=== PATIENT | female | born 1990 | race Caucasian/White ===

== ENCOUNTER 2024-09-01 14:07 | Emergency (ER) | payer BC, SELFPAY ==
[2024-09-01 14:17] VITALS: BP 113/70
[2024-09-01 15:10] LABS: % Basophils 0.7 % (0-2); % Eosinophils 2.8 % (0-6); % Immature Granulocytes 0.1 % (0-0.5); % Lymphocytes 25.8 % (20.5-51.1); % Monocytes 11.2 % (1.7-9.3); % Neutrophils 59.4 % (42.2-75.2); Absolute Basophils 0.1 10^3/uL (0-0.2); Absolute Eosinophils 0.2 10^3/uL (0-0.7); Absolute Lymphocytes 1.8 10^3/uL (1.2-3.4); Absolute Monocytes 0.8 10^3/uL (0.1-0.6); Absolute Neutrophils 4.1 10^3/uL (1.4-6.5); Hematocrit 35.9 % (37.0-47.0); Hemoglobin 12.4 g/dL (12.0-16.0); Mean Corp Hgb Conc. 34.5 g/dL (33.0-37.0); Mean Corpuscular Hgb 29.4 pg (27.0-31.0); Mean Corpuscular Volume 85.1 fL (81.0-99.0); Mean Platelet Volume 9.4 fL (7.4-10.4); Nucleated Red Blood Cells % 0 %; Platelet Count 201 10^3/uL (130-400); Red Blood Cell Count 4.22 10^6/uL (4.20-5.40); Red Cell Dist. Width 12.9 % (11.5-14.5); White Blood Cell Count 6.9 10^3/uL (4.8-10.8)
[2024-09-01 15:22] LABS: ALT (SGPT) 13 U/L (0-35); AST (SGOT) 19 U/L (14-36); Albumin 4.2 g/dl (3.5-5.0); Alkaline Phosphatase 33 U/L (38-126); Blood Urea Nitrogen 12 mg/dl (7-17); Calcium 9.6 mg/dl (8.4-10.2); Carbon Dioxide 23 mmol/L (22-30); Chloride 105 mmol/L (98-107); Glucose 86 mg/dl (70-99); Potassium 3.7 mmol/L (3.5-5.1); Sodium 140 mmol/L (135-145); Total Bilirubin 0.1 mg/dl (0.2-1.3); Total Protein 7.3 g/dl (6.3-8.2); eGFR > 60.00
[2024-09-01 15:25] LABS: COVID-19 Antigen Negative (Negative)
[2024-09-01 16:41] VITALS: BP 110/58; BMI 24.3
--- NOTE | 2024-09-01 16:48 | ED.GENMED ---
History of Present Illness
General
Chief Complaint: Breathing Problem
Source: patient
Exam Limitations: none
Time Seen by Provider: 09/01/24 16:26
Nursing documentation reviewed up to this point in time: agreed with
History of Present Illness
History of Present Illness:
34-year-old female presenting to the emergency department today with concerns of shortness of breath noticed this morning. Had upper respiratory symptoms over the past few days and was seen at urgent care yesterday where she had strep test and
COVID test which were both negative. She was started on amoxicillin. Some ongoing throat pain nasal congestion but shortness of breath worsening today mainly with exertion. Denies any leg swelling recent trauma surgery immobilization.
Review of Systems
Review of Systems
Allergies reviewed?: Yes
All Other Systems: ROS reviewed and negative except as documented in HPI and ROS
Phy Exam
Physical Exam
Physical Exam:
GENERAL: Alert , in no apparent distress
EYE: pupils equal and reactive
NECK: Supple, no significant adenopathy.
ENT: Swollen boggy nasal turbinates, redness and irritation of the posterior pharynx with uvula midline grossly patent airway no significant tonsillar swelling no exudate o/p clr, mmm.
CARDIAC: Regular rate and rhythm .
LUNGS: Clear breath sounds bilaterally, no acute respiratory distress, no wheezes/rales/rhonchi
ABDOMEN: Soft, without focal tenderness, no r/g, no cvat
NEUROLOGICAL: Alert and oriented, no focal neuro deficits
SKIN: Warm and dry, skin intact.
MUSCULOSKELETAL: No edema, well perfused.
PSYCH: Normal and appropriate interaction.
Course
Orders/Labs/Results
Orders:
Orders
09/01/24 14:10
Electrocardiogram (*1) Urgent
Reason for Study: Shortness of Breath
09/01/24 14:11
EKG- Treatment ONCE
09/01/24 14:54
COVID-19 Antigen Urgent
Source: Nasal Swab
Complete Blood Count/With Diff Urgent
Comprehensive Metabolic Panel Urgent
Influenza A+B Rapid Molecular Urgent
REINA Source: Nasal Swab
Specimen Description:
09/01/24 16:47
Dexamethasone [Decadron] 10 mg PO NOW STA
Chest [CR Chest - 2 Views ] Urgent
Comment:
Reason For Exam: sob cough
Abnormal Lab Results
09/01/24
14:54
Hct 35.9 L %
(37.0-47.0)
Absolute Monos (auto) 0.8 H 10^3/uL
(0.1-0.6)
Monocytes % 11.2 H %
(1.7-9.3)
Total Bilirubin 0.1 L mg/dl
(0.2-1.3)
Alkaline Phosphatase 33 L U/L
(38-126)
09/01/24 14:54
09/01/24 14:54
Vital Signs
Initial and Last Documented VS:
Initial Vital Signs
Temp Pulse Resp BP Pulse Ox
98.1 F 78 18 113/70 100
09/01/24 14:17 09/01/24 14:17 09/01/24 14:17 09/01/24 14:17 09/01/24 14:17
Last Documented Vital Signs
Temp Pulse Resp BP Pulse Ox
98.1 F 74 16 115/78 99
09/01/24 14:17 09/01/24 18:01 09/01/24 18:01 09/01/24 18:01 09/01/24 18:01
MDM/Problems Addressed
MDM/Problems Addressed:
34-year-old female presenting to the emergency department today with concerns of shortness of breath. Started this morning diagnosed with likely viral syndrome yesterday at urgent care has had symptoms for a few days. Upon arrival vital signs are
normal patient no distress normal pulse ox lungs are clear no wheezing significant formation to the nose and posterior pharynx. Patient was walked in the room and pulse ox remained in the high 90s. X-ray performed without evidence of acute
consolidation or abnormality. Patient without any emergent processes at this time no evidence of bacterial secondary infection. Plan to discharge at this point considering patient well-appearing in no distress low risk for PE without specific risk
factors other than combined oral contraceptive but normal vital signs. Patient does have alternate diagnosis with likely viral syndrome advised for steroids but otherwise stable for discharge. Return precautions given.
*Critical Care Note
Total Time (30-74mins, 75-104mins- exclusive of procedures): Not Applicable
ED Attending Note
-
Portions of this chart may have been created with voice recognition software.� Occasional wrong word or��sound alike� substitutions may have occurred due to the inherent limitations of voice recognition software.
Discharge Plan
Departure
Patient Disposition: Home (Routine Discharge)
Date of Disposition: 09/01/24
Time of Disposition: 18:03
Patient with high blood pressure during this ER visit?: No
Condition: Good
Covid-19: Not Applicable
Discharge Problem:
Acute bronchitis
Instructions: Acute Bronchitis, Adult (DC)
Prescriptions:
New
prednisone 50 mg tablet
50 mg PO DAILY 4 Days Qty: 4 0RF
Referrals:
[facility] [Other]
Activity Restrictions/Additional Instructions:
You came to the emergency department today with concerns of shortness of breath in the setting of likely viral syndrome. Please take the prednisone as prescribed once daily for the next 4 days, hyou can also take Motrin Tylenol for discomfort.
Symptoms should hopefully improve over the next few days. Please follow close with the primary care doctor to get reassessed. Return to the emergency department for any worsening, new or concerning symptoms.
Interventions
Interventions:
*Risk Screen - Suicide Last Done: 09/01/24 16:44
*General Assessment Last Done: 09/01/24 16:44
*Neglect/Abuse Screening Last Done: 09/01/24 16:44
*ED COVID-19 Vaccine History Last Done: 09/01/24 16:44
ED- Cardiac Assessment Last Done: 09/01/24 16:45
ED- Pulmonary Assessment Last Done: 09/01/24 16:45
Discharge Date and Time
Print Language: MAURITANIAN
[2024-09-01] MEDS: DECADRON 10 MG PO (16:56)
[2024-09-01 18:01] VITALS: BP 115/78
== END 2024-09-01 18:12 | disposition home or self-care (01) ==
LOC: EMR 14:07
PROVIDERS: EMERGENCY PHYSICIAN Emergency Medicine
DX: J20.9 Acute bronchitis, unspecified (principal)
CPT/HCPCS: 99283; 71046; 80053; 85025; 87502; 87811; 93005

== ENCOUNTER 2024-09-04 09:49 | Emergency (ER) | payer BC, SELFPAY ==
[2024-09-04 10:11] VITALS: BP 112/69
[2024-09-04 10:44] LABS: % Basophils 0.6 % (0-2); % Eosinophils 0.2 % (0-6); % Immature Granulocytes 0.2 % (0-0.5); % Lymphocytes 37.7 % (20.5-51.1); % Monocytes 7.2 % (1.7-9.3); % Neutrophils 54.1 % (42.2-75.2); Absolute Basophils 0.1 10^3/uL (0-0.2); Absolute Lymphocytes 3.1 10^3/uL (1.2-3.4); Absolute Monocytes 0.6 10^3/uL (0.1-0.6); Absolute Neutrophils 4.5 10^3/uL (1.4-6.5); Hematocrit 36.9 % (37.0-47.0); Hemoglobin 13.2 g/dL (12.0-16.0); Mean Corp Hgb Conc. 35.8 g/dL (33.0-37.0); Mean Corpuscular Hgb 29.9 pg (27.0-31.0); Mean Corpuscular Volume 83.7 fL (81.0-99.0); Mean Platelet Volume 9.4 fL (7.4-10.4); Nucleated Red Blood Cells % 0 %; Platelet Count 246 10^3/uL (130-400); Red Blood Cell Count 4.41 10^6/uL (4.20-5.40); Red Cell Dist. Width 12.4 % (11.5-14.5); White Blood Cell Count 8.3 10^3/uL (4.8-10.8)
[2024-09-04 11:00] LABS: HCG, Serum Qualitative Screen Negative
[2024-09-04 11:06] LABS: ALT (SGPT) 14 U/L (0-35); AST (SGOT) 19 U/L (14-36); Albumin 4.4 g/dl (3.5-5.0); Alkaline Phosphatase 34 U/L (38-126); Blood Urea Nitrogen 16 mg/dl (7-17); Calcium 10.3 mg/dl (8.4-10.2); Carbon Dioxide 19 mmol/L (22-30); Chloride 108 mmol/L (98-107); Glucose 90 mg/dl (70-99); Potassium 3.6 mmol/L (3.5-5.1); Sodium 142 mmol/L (135-145); Total Bilirubin 0.3 mg/dl (0.2-1.3); Total Protein 7.6 g/dl (6.3-8.2); eGFR > 60.00
[2024-09-04 11:11] LABS: D-Dimer 0.48 ug/mlFEU (0.00-0.50)
--- NOTE | 2024-09-04 11:28 | ED.GENMED ---
History of Present Illness
<Whit Moyer PA-C - Last Filed: 09/04/24 16:33>
General
Chief Complaint: Breathing Problem
Source: patient
Exam Limitations: none
Time Seen by Provider: 09/04/24 11:22
Nursing documentation reviewed up to this point in time: agreed with
History of Present Illness
History of Present Illness:
34-year-old female with a past medical history of uterine polyps presents emergency department today with concerns of shortness of breath. This has been going on for the past 4 days. Patient was originally seen in the emergency department a few
days ago, at that time she also had associated sore throat and nasal congestion. She tested negative for COVID and flu. She had a chest x-ray which did not show any concerning findings. She was diagnosed with bronchitis. She was started on a
steroid. Patient felt like her symptoms did start to improve however yesterday they got worse and return. Patient notes that the shortness of breath is worse with exertion. Patient states that while in the emergency department, she started
develop some left-sided chest pain as well. Patient reports that she went to urgent care today and they sent her to the emergency department for further evaluation and they were concerned about pulmonary embolism, patient does take oral
contraceptives, she denies any pain or swelling in her legs. She denies any cough. She states that she was walked at urgent care and they noted audible wheezing. Patient states that she has a history of asthma in her 20s. she is 11 months
.
Review of Systems
<Whit Moyer PA-C - Last Filed: 09/04/24 16:33>
Review of Systems
All Other Systems: ROS reviewed and negative except as documented in HPI and ROS
Phy Exam
<Whit Moyer PA-C - Last Filed: 09/04/24 16:33>
Physical Exam
Physical Exam:
General: Patient is well appearing and in no acute distress; non-toxic
Skin: Warm and dry, no rashes or lesions
Head: Normocephalic, atraumatic
Eyes: Sclera non-icteric. EOMs intact.
Cardiac: Bradycardia otherwise regular rhythm, no murmurs
Peripheral Vascular: No lower extremity swelling or edema
Pulm: Tachypnea and conversational dyspnea noted, otherwise lungs clear no wheezes, rales, rhonchi
Neuro: CN II-XII intact, no focal neurologic deficits.
Psychiatric: Appropriate mood and affect.
Course
<Wiht Moyre PA-C - Last Filed: 09/04/24 16:33>
Orders/Labs/Results
Orders:
Orders
09/04/24 10:18
Test Result ONCE
09/04/24 10:29
Complete Blood Count/With Diff Urgent
Comprehensive Metabolic Panel Urgent
D-Dimer Urgent
HCG, Serum Qualitative Screen Urgent
09/04/24 11:23
Electrocardiogram (*1) Urgent
Reason for Study: Shortness of Breath
EKG- Treatment ONCE
09/04/24 12:53
Add On- LAB Urgent
Tests Added?: troponin
09/04/24 12:54
Ipratropium/Albuterol Sulfate [Duoneb] 3 ml INH R NOW ONE
09/04/24 13:09
CT Chest Pe Study Urgent
Comment:
Reason For Exam: severe tachypnea; clear lungs, recent neg CXR
09/04/24 13:10
NT-proBNP Urgent
Troponin I Routine
Comment: ADD ON
Abnormal Lab Results
09/04/24
10:29
Hct 36.9 L %
(37.0-47.0)
Chloride 108 H mmol/L
(98-107)
Carbon Dioxide 19 L mmol/L
(22-30)
Calcium 10.3 H mg/dl
(8.4-10.2)
Alkaline Phosphatase 34 L U/L
(38-126)
09/04/24 10:29
09/04/24 10:29
Vital Signs
Initial and Last Documented VS:
Initial Vital Signs
Temp Pulse Resp BP Pulse Ox
98.0 F 77 18 112/69 100
09/04/24 10:11 09/04/24 10:11 09/04/24 10:11 09/04/24 10:11 09/04/24 10:11
Last Documented Vital Signs
Temp Pulse Resp BP Pulse Ox
98.2 F 70 12 107/66 97
09/04/24 13:56 09/04/24 15:00 09/04/24 15:00 09/04/24 15:00 09/04/24 15:00
<Leobardo Moran, DO - Last Filed: 09/04/24 13:08>
Orders/Labs/Results
Orders:
Orders
09/04/24 10:18
Test Result ONCE
09/04/24 10:29
Complete Blood Count/With Diff Urgent
Comprehensive Metabolic Panel Urgent
D-Dimer Urgent
HCG, Serum Qualitative Screen Urgent
09/04/24 11:23
Electrocardiogram (*1) Urgent
Reason for Study: Shortness of Breath
EKG- Treatment ONCE
09/04/24 12:53
Add On- LAB Urgent
Tests Added?: troponin
09/04/24 12:54
Ipratropium/Albuterol Sulfate [Duoneb] 3 ml INH R NOW ONE
09/04/24 13:09
CT Chest Pe Study Urgent
Comment:
Reason For Exam: severe tachypnea; clear lungs, recent neg CXR
09/04/24 13:10
NT-proBNP Urgent
Troponin I Routine
Comment: ADD ON
Abnormal Lab Results
09/04/24
10:29
Hct 36.9 L %
(37.0-47.0)
Chloride 108 H mmol/L
(98-107)
Carbon Dioxide 19 L mmol/L
(22-30)
Calcium 10.3 H mg/dl
(8.4-10.2)
Alkaline Phosphatase 34 L U/L
(38-126)
09/04/24 10:29
09/04/24 10:29
Vital Signs
Initial and Last Documented VS:
Initial Vital Signs
Temp Pulse Resp BP Pulse Ox
98.0 F 77 18 112/69 100
09/04/24 10:11 09/04/24 10:11 09/04/24 10:11 09/04/24 10:11 09/04/24 10:11
Last Documented Vital Signs
Temp Pulse Resp BP Pulse Ox
98.2 F 70 12 107/66 97
09/04/24 13:56 09/04/24 15:00 09/04/24 15:00 09/04/24 15:00 09/04/24 15:00
Kamranlt;Whit Moyer PA-C - Last Filed: 09/04/24 16:33>
MDM/Problems Addressed
Differential Diagnosis Includes:
ddx include,pulmonary embolism, asthma, acute bronchitis, anemia,
MDM/Problems Addressed:
34-year-old female with a past medical history of uterine polyps presents emergency department today with concerns of shortness of breath. This has been going on for the past 4 days. She initially had associated congestion and sore throat with
this, these other symptoms resolved and now the shortness of breath persist. Patient was put on a trial of steroids without relief. On physical exam, her vitals are stable, she is not hypoxic, not febrile, however she appears somewhat
uncomfortable and has notable conversational dyspnea and tachypnea. Considering no clear cause for the patient's symptoms at this time, and failure of outpatient management, will send for CTA for further evaluation. Of note, patient's D-dimer is
within normal range, her troponin is undetectable, and her pro BNP is not concerning the elevated. Will attempt to give DuoNeb treatment and reassess.
On reassessment, patient feels like the DuoNeb treatment did help her symptoms. Patient denies any development of any new symptoms. Her CTA of the chest shows no evidence of PE, no acute findings in the chest, no evidence of any fluid.
Considering DuoNeb did help patient's his symptoms, and considering she has had a history of asthma in her 20s, will send albuterol inhaler to her pharmacy. I suspect patient's current symptoms are possibly continuation of a viral syndrome. Did
recommend assessment by a purchasing internship should her symptoms not improved. Patient stable for discharge.
Chronic conditions affecting care:
n/a
Acute Exacerbation and/or Progression of Chronic Illness:
n/a
<Whit Moyer PA-C - Last Filed: 09/04/24 16:33>
*Radiology
Radiology exam reviewed: radiology read reviewed
*Pulse Oximetry
Patient hypoxic: no
*EKG
EKG Intrepretation Date: 09/04/24
Interpretation: abnormal
Comparison EKG: no comparison EKG present
Heart Rate: 52
Rate: bradycardiac
Rhythm: sinus
[place]ag[place]: normal axis
Interval: normal interval and normal QT interval
QRS Pattern: normal QRS
Ischemia: no ischemia
*Critical Care Note
Total Time (30-74mins, 75-104mins- exclusive of procedures): Not Applicable
Data Reviewed
Review of Other/Old Records Reveals: Records (Reviewed ER physician documentation from 09/01/2024, patient seen for bronchitis,) and Discharge Summary (No discharge summary [employer] to review )
Source: patient and records
Prescriptions/Medications Considered But Not Given:
n/a
<Whit Moyer PA-C - Last Filed: 09/04/24 16:33>
Patient Management
Escalation/DeEscalation of care consider admission/obs:
Admit not indicated, patient stable for discharge
ED Attending Note
<Whit Moyer PA-C - Last Filed: 09/04/24 16:33>
-
Portions of this chart may have been created with voice recognition software.� Occasional wrong word or��sound alike� substitutions may have occurred due to the inherent limitations of voice recognition software.
<Leobardo Moran DO - Last Filed: 09/04/24 13:08>
ED Attending Note
Patient seen and examined by attending physician: Yes
I performed the substantive portion of visit, reviewed & personally made and approve the management plan that is documented in note by myself or [place].: Yes
I performed a history and physical exam of patient and discussed management with resident, I reviewed resident's note and agree with documented findings and plan of care.: Yes
ED Attending Note:
I evaluated patient at bedside. White count is normal, D-dimer is reassuring, chemistries unremarkable. EKG shows a sinus bradycardia with no ST abnormality. I reviewed the x-ray from 09/01/2024 which was unremarkable.
Discharge Plan
Departure
Patient Disposition: Home (Routine Discharge)
Date of Disposition: 09/04/24
Time of Disposition: 15:20
Patient with high blood pressure during this ER visit?: No
Condition: Good
Discharge Problem:
Shortness of breath
Instructions: Shortness of Breath (Dyspnea) (DC), Albuterol
Prescriptions:
New
albuterol sulfate 90 mcg/actuation HFA aerosol inhaler
2 puff inhalation Q6H PRN (Reason: shortness of breath or wheezing) Qty: 6.7 0RF
No Action
prednisone 50 mg tablet
50 mg PO DAILY 4 Days Qty: 4 0RF
Referrals:
Reji Marlow MD [Active] - Call in 1-3 days for appt
NONE,* [Family Provider] -
Activity Restrictions/Additional Instructions:
Your D-dimer was normal. Your CT of the chest showed no concerning findings.
You can call the attached number to schedule appointment to see a purchasing internship.
Please return to the emergency department should you experience any acute worsening of your symptoms, chest pain, fevers or chills, intractable nausea or vomiting, syncopal episodes, lightheadedness, or any other signs or symptoms concerning to you.
Interventions
Interventions:
*Risk Screen - Suicide Last Done: 09/04/24 10:11
*General Assessment Last Done: 09/04/24 10:11
*Neglect/Abuse Screening Last Done: 09/04/24 10:11
*Nursing Disposition Last Done: 09/04/24 15:47
ED- Cardiac Assessment Last Done: 09/04/24 13:03
ED- Pulmonary Assessment Last Done: 09/04/24 13:03
Discharge Date and Time
Discharge Date/Time: 09/04/24 15:47
Print Language: VIET[place]ESE
[2024-09-04 11:44] VITALS: BP 121/72
[2024-09-04 12:00] VITALS: BP 113/67
[2024-09-04 13:00] VITALS: BP 117/80
[2024-09-04] MEDS: DUONEB 3 ML INH (13:01)
[2024-09-04 13:11] VITALS: BMI 27.5
[2024-09-04 13:46] LABS: NT-proBNP 277 pg/ml; Troponin I < 0.012 ng/ml
[2024-09-04 14:55] VITALS: BP 113/65
[2024-09-04 15:00] VITALS: BP 107/66
== END 2024-09-04 15:47 | disposition home or self-care (01) ==
LOC: EMR 09:49
PROVIDERS: EMERGENCY PHYSICIAN Emergency Medicine
DX: R06.02 Shortness of breath (principal); R07.89 Other chest pain
CPT/HCPCS: 94640; 99284; 71275; 80053; 83880; 84484; 84703; 85025; 85379; 93005; Q9967